=== PATIENT | female | born 1980 | race Caucasian/White ===

== ENCOUNTER 2021-10-14 23:48 | Emergency (ER) | payer SELFPAY ==
--- NOTE | ~2021-10-14 | CT_ITS ---
EXAMINATION: CT ABDOMEN AND PELVIS WITHOUT CONTRAST CLINICAL INFORMATION: Abdominal pain COMPARISON: 10/03/2021 TECHNIQUE: Multidetector volumetric imaging was performed from the superior aspect of the liver through the pubic symphysis. Sagittal and coronal reformatted images were obtained on the technologist's workstation. This CT examination was performed using dose optimization techniques as appropriate, variously including the following: *Automated exposure control *Adjustment of mA and/or kV according to patient size (this includes techniques or standardized protocols for targeted exams where dose is matched to indication/reason for exam; i.e. extremities or head) *Use of iterative reconstruction technique DLP: 637 mGy-cm FINDINGS: LUNG BASES: The visualized lung bases are unremarkable. LIVER, GALLBLADDER, AND BILIARY TREE: There is diffuse hepatic hypoattenuation consistent with steatosis. No intrahepatic biliary ductal dilatation. Redemonstrated subtle lesion in the posterior right hepatic lobe, without appreciable change from prior and not adequately assessed on this exam. Patient is status post cholecystectomy. PANCREAS: Unremarkable. SPLEEN: Unremarkable. ADRENAL GLANDS: Unremarkable. KIDNEYS AND URETERS: There is redemonstrated asymmetric fullness of the right renal pelvis with some surrounding stranding, without appreciable change from 10/03/2021. No obstructing calculus is seen. No left hydronephrosis. A few scattered bilateral renal calculi are present measuring up to 4 mm in the left lower pole. BLADDER: Unremarkable. GASTROINTESTINAL TRACT: No evidence of bowel obstruction or significant wall thickening. The appendix is unremarkable. No free fluid or free air is seen. ABDOMINAL WALL: No significant hernia is appreciated. LYMPH NODES: Normal. VASCULAR: Unremarkable. PELVIC VISCERA: Unremarkable. OSSEOUS STRUCTURES: There is degenerative change in the spine at L4-L5. CT/CT abdomen pelvis wo con IMPRESSION: 1. Redemonstrated fullness of the right renal pelvis with mild surrounding stranding, similar to 10/03/2021. No obstructing calculus identified. 2. Hepatic steatosis.
[2021-10-15 00:01] VITALS: BP 148/99; PULSE 100; RESP 18; TEMP 36.9; O2SAT 98; BMI 33.7
[2021-10-15 00:38] LABS: MANUAL DIFF FLAG NO
[2021-10-15 00:39] LABS: Appearance Urine HAZY; Basophils Percent Auto 0.5 % (0-2); Color Urine YELLOW; Eosinophils Absolute Auto 0.1 X10*3/uL (0.0-0.4); Eosinophils Percent Auto 1.1 % (0-4); Glucose Urine UA NEG (NEG); Hematocrit 41.2 % (37.0-47.0); Imm Gran Abs Auto 0.03 X10*3/uL (0.00-0.03); Imm Gran Pct Auto 0.3 % (0.0-0.4); Leukocyte Esterase Urine 2+ (NEG); Lymphocytes Absolute Auto 2.1 X10*3/uL (1.2-4.9); Lymphocytes Percent Auto 23.4 % (20-40); Mean Corpuscular Hemoglobin 30.2 pg (27.0-33.0); Mean Corpuscular Volume 88.8 fL (80.0-98.0); Mean Platelet Volume 9.6 fL (9.4-12.3); Monocytes Absolute Auto 0.4 X10*3/uL (0.1-1.2); Neutrophils Absolute Auto 6.2 x10*3/uL (2.0-8.3); Neutrophils Percent Auto 69.7 % (45-73); Nitrite Urine NEG (NEG); Platelet Count 391 X10*3/uL (160-400); Red Blood Count 4.64 X10*6/uL (4.20-5.50); Red Cell Distribution Width 12.4 % (11.0-16.0); UACC Culture Trigger YES; Urine Blood 1+ (NEG); Urine Ketones NEG (NEG); Urine Protein NEG (NEG-TRACE); White Blood Count 8.8 X10*3/uL (4.8-10.8)
[2021-10-15 00:41] LABS: UPreg QC Valid YES; Urine Pregnancy NEGATIVE (NEGATIVE)
[2021-10-15 00:49] LABS: Bacteria Urine 2+ /LPF; Mucus Urine 1+ /LPF; Squamous Epithelial Cell Urine 3+ /LPF; UACC CULT YES
[2021-10-15 00:59] VITALS: BP 144/85; PULSE 99; RESP 16; TEMP 36.9; O2SAT 97
[2021-10-15 01:02] LABS: Alanine Aminotransferase 92 U/L (0-31); Albumin Level 4.5 g/dL (3.5-5.0); Alkaline Phosphatase 103 U/L (39-117); Anion Gap 14 (12-20); Aspartate Amino Transferase 58 U/L (5-31); Bilirubin Total 0.4 mg/dL (0.0-1.0); Blood Urea Nitrogen 12 mg/dL (9-16); Calcium 10.5 mg/dL (8.4-10.2); Carbon Dioxide 25 mmol/L (22-29); Chloride 108 mmol/L (96-108); Creatinine Clr Calc Pharmacy 80.8; Estimated Glomerular Filt Rate 55; Glucose Random 92 mg/dL (60-115); Potassium 3.6 mmol/L (3.3-5.1); Sodium 143 mmol/L (135-145)
--- NOTE | 2021-10-15 01:08 | ED.FEMALEGU ---
HPI - Female Genitourinary General Chief complaint: Urogenital-Female <Kimmy Brock MD - Last Filed: 10/15/21 01:55> Stated complaint: kidney stones? severe pain R side <Kimmy Brock MD - Last Filed: 10/15/21 01:55> Time Seen by Provider: 10/15/21 01:00 <Kimmy Brock MD - Last Filed: 10/15/21 01:55> History of Present Illness HPI Narrative: Patient is a 41-year-old female presents today with having right-sided flank pain radiating to the right lower quadrant history of kidney stones in the past patient's pain feels the same. It is sharp in nature. It is associated with nausea. Patient from home. Had a ureteral stent removed in [place] approximately 2 weeks ago. Had previous stone on the left side as well. Patient denies any coughing congestion upper respiratory symptoms. Has an allergy to Motrin/Toradol. Patient claims that these medications give her a severe rash. <Kimmy Brock MD - Last Filed: 10/15/21 01:55> Related Data Home medications: Previous Rx's Medication Instructions Recorded levofloxacin 750 mg tablet 750 mg PO DAILY 7 Days #7 tab 10/15/21 <Kimmy Brock MD - Last Filed: 10/15/21 01:55> Allergies/Adverse reactions: Allergies Allergy/AdvReac Type Severity Reaction Status Date / Time ibuprofen [From Motrin] Allergy Rash Verified 10/15/21 00:00 ketorolac [From Toradol] Allergy Rash Verified 10/15/21 00:00 <Kimmy Brock MD - Last Filed: 10/15/21 01:55> Review of Systems Review of Systems: Positive right-sided flank pain <Kimmy Brock MD - Last Filed: 10/15/21 01:55> PMF Past Medical History Attestation statement: The following information was validated with the patient. <Kimmy Brock MD - Last Filed: 10/15/21 01:55> Social History Social History: Social History Alcohol intake: never Patient Tobacco Use Status: Never used Tobacco Use of substances other than those prescribed or required for medical reasons: No Advance Directives: No Patient : No <Kimmy Brock MD - Last Filed: 10/15/21 01:55> Physical Exam Vital Signs: Vital Signs: Last Vital Signs Temp 98.5 F 10/15/21 00:59 Pulse 99 10/15/21 00:59 Resp 15 10/15/21 01:42 BP 144/85 H 10/15/21 00:59 Pulse Ox 97 10/15/21 00:59 BMI result Body Mass Index 33.7 Appearance: Alert. Oriented X3. No acute distress. Eyes: Pupils equal, round and reactive to light. ENT: Pharynx normal. Neck: Normal inspection. Neck supple. No lymph nodes noted. No crepitus CVS: Normal heart rate and rhythm. Pulses normal. Normal S1 and S2 Respiratory: No respiratory distress. Breath sounds normal. No Wheezing. No rales Abdomen: Soft and nontender. No rigidity. No distention. good BS x4 Skin: Skin warm and dry. Normal skin color. Normal skin turgor. Extremities: No lower extremity edema. Neurovascular intact to all extremities. No Lacerations. No Rash Neuro: Oriented X 3. No motor deficit. No sensory deficit. Moving all extermities. No slurred speech <Kimmy Brock MD - Last Filed: 10/15/21 01:55> Vital Signs: Last Vital Signs Temp 98.5 F 10/15/21 00:59 Pulse 99 10/15/21 00:59 Resp 15 10/15/21 01:42 BP 144/85 H 10/15/21 00:59 Pulse Ox 97 10/15/21 00:59 BMI result Body Mass Index 33.7 <Dorita Roberto MD - Last Filed: 10/15/21 02:32> Course Reevaluation(s) Reevaluation #1: Patient was signed out to me for follow-up on possible renal colic. Her reviewed all findings and there is a report of renal fullness with some stranding and patient states that she completed a recent prescription of cephalexin, raising the possibility of incomplete resolution of underlying infection. I discussed this with the patient and she understands that she will be placed on an antibiotic that will cover infection of the kidney and that she should then follow up with her primary care provider. I will treat her presumptively for mild pyelonephritis but she is able to tolerate oral intake. In addition, patient is noted to have epigastric discomfort and does endorse recent alcohol consumption which may explain the elevation in lipase and may be a contributing factor to patient's symptoms. <Dorita Roberto MD - Last Filed: 10/15/21 02:32> Time: 02:27 <Dorita Roberto MD - Last Filed: 10/15/21 02:32> MDM - Female Genitourinary MDM Narrative Medical decision making narrative: Patient's white count is normal. Electrolytes showed a normal creatinine. Complaining of pain on the right flank area history of kidney stones in the past. CT scan of the abdomen still pending. Patient's urine showed mostly contamination. Currently in stable condition awaiting CT results. <Kimmy Brock MD - Last Filed: 10/15/21 01:55> Lab Data Result diagrams: : 10/15/21 00:23 10/15/21 00:23 <Kimmy Brock MD - Last Filed: 10/15/21 01:55> Labs: Lab Results 10/15/21 10/15/21 10/15/21 Range/Units 00:23 00:23 00:23 WBC 8.8 (4.8-10.8) X10*3/uL RBC 4.64 (4.20-5.50) X10*6/uL Hgb 14.0 (12.0-16.0) g/dl Hct 41.2 (37.0-47.0) % MCV 88.8 (80.0-98.0) fL MCH 30.2 (27.0-33.0) pg MCHC 34.0 (31.0-35.0) g/dl RDW 12.4 (11.0-16.0) % Plt Count 391 (160-400) X10*3/uL MPV 9.6 (9.4-12.3) fL Immature Gran % (Auto) 0.3 (0.0-0.4) % Neut % (Auto) 69.7 (45-73) % Lymph % (Auto) 23.4 (20-40) % [place] % (Auto) 5.0 (2-11) % Eos % (Auto) 1.1 (0-4) % Baso % (Auto) 0.5 (0-2) % Lymph # (Auto) 2.1 (1.2-4.9) X10*3/uL [place] # (Auto) 0.4 (0.1-1.2) X10*3/uL Eos # (Auto) 0.1 (0.0-0.4) X10*3/uL Baso # (Auto) 0.0 (0.0-0.2) X10*3/uL Abs Immat Gran (auto) 0.03 (0.00-0.03) X10*3/uL Absolute Neuts (auto) 6.2 (2.0-8.3) x10*3/uL Absolute Nucleated RBC 0.000 (0.0-0.012) X10*3/uL Nucleated RBC % (auto) 0.0 (0.0-0.2) /100WBC Sodium 143 (135-145) mmol/L Potassium 3.6 (3.3-5.1) mmol/L Chloride 108 (96-108) mmol/L Carbon Dioxide 25 (22-29) mmol/L Anion Gap 14 (12-20) BUN 12 (9-16) mg/dL Creatinine 1.10 (0.5-1.4) mg/dL Estim Creat Clear Calc 80.8 Estimated GFR 55 Random Glucose 92 (60-115) mg/dL Calcium 10.5 H (8.4-10.2) mg/dL Total Bilirubin 0.4 (0.0-1.0) mg/dL AST 58 H (5-31) U/L ALT 92 H (0-31) U/L Alkaline Phosphatase 103 (39-117) U/L Total Protein 7.0 (6.5-8.0) g/dL Albumin 4.5 (3.5-5.0) g/dL Lipase 129 H (8-78) U/L Urine Color YELLOW Urine Appearance HAZY Urine pH 6.0 (5.0-8.0) Ur Specific [place] 1.010 (1.005-1.025) Urine Protein NEG (NEG-TRACE) MG/DL Urine Glucose (UA) NEG (NEG) MG/DL Urine Ketones NEG (NEG) MG/DL Urine Blood 1+ H (NEG) Urine Nitrite NEG (NEG) Ur Leukocyte Esterase 2+ H (NEG) Urine RBC 1-4 (0) /HPF Urine WBC 15-29 H (0-4) /HPF Ur Squamous Epith Cells 3+ /LPF Urine Bacteria 2+ /LPF Urine Mucus 1+ /LPF Urine Test (NEGATIVE) 10/15/21 Range/Units 00:23 WBC (4.8-10.8) X10*3/uL RBC (4.20-5.50) X10*6/uL Hgb (12.0-16.0) g/dl Hct (37.0-47.0) % MCV (80.0-98.0) fL MCH (27.0-33.0) pg MCHC (31.0-35.0) g/dl RDW (11.0-16.0) % Plt Count (160-400) X10*3/uL MPV (9.4-12.3) fL Immature Gran % (Auto) (0.0-0.4) % Neut % (Auto) (45-73) % Lymph % (Auto) (20-40) % [place] % (Auto) (2-11) % Eos % (Auto) (0-4) % Baso % (Auto) (0-2) % Lymph # (Auto) (1.2-4.9) X10*3/uL [place] # (Auto) (0.1-1.2) X10*3/uL Eos # (Auto) (0.0-0.4) X10*3/uL Baso # (Auto) (0.0-0.2) X10*3/uL Abs Immat Gran (auto) (0.00-0.03) X10*3/uL Absolute Neuts (auto) (2.0-8.3) x10*3/uL Absolute Nucleated RBC (0.0-0.012) X10*3/uL Nucleated RBC % (auto) (0.0-0.2) /100WBC Sodium (135-145) mmol/L Potassium (3.3-5.1) mmol/L Chloride (96-108) mmol/L Carbon Dioxide (22-29) mmol/L Anion Gap (12-20) BUN (9-16) mg/dL Creatinine (0.5-1.4) mg/dL Estim Creat Clear Calc Estimated GFR Random Glucose (60-115) mg/dL Calcium (8.4-10.2) mg/dL Total Bilirubin (0.0-1.0) mg/dL AST (5-31) U/L ALT (0-31) U/L Alkaline Phosphatase (39-117) U/L Total Protein (6.5-8.0) g/dL Albumin (3.5-5.0) g/dL Lipase (8-78) U/L Urine Color Urine Appearance Urine pH (5.0-8.0) Ur Specific [place] (1.005-1.025) Urine Protein (NEG-TRACE) MG/DL Urine Glucose (UA) (NEG) MG/DL Urine Ketones (NEG) MG/DL Urine Blood (NEG) Urine Nitrite (NEG) Ur Leukocyte Esterase (NEG) Urine RBC (0) /HPF Urine WBC (0-4) /HPF Ur Squamous Epith Cells /LPF Urine Bacteria /LPF Urine Mucus /LPF Urine Test NEGATIVE (NEGATIVE) <Kimmy Brock MD - Last Filed: 10/15/21 01:55> Lab Results 10/15/21 10/15/21 10/15/21 Range/Units 00:23 00:23 00:23 WBC 8.8 (4.8-10.8) X10*3/uL RBC 4.64 (4.20-5.50) X10*6/uL Hgb 14.0 (12.0-16.0) g/dl Hct 41.2 (37.0-47.0) % MCV 88.8 (80.0-98.0) fL MCH 30.2 (27.0-33.0) pg MCHC 34.0 (31.0-35.0) g/dl RDW 12.4 (11.0-16.0) % Plt Count 391 (160-400) X10*3/uL MPV 9.6 (9.4-12.3) fL Immature Gran % (Auto) 0.3 (0.0-0.4) % Neut % (Auto) 69.7 (45-73) % Lymph % (Auto) 23.4 (20-40) % [place] % (Auto) 5.0 (2-11) % Eos % (Auto) 1.1 (0-4) % Baso % (Auto) 0.5 (0-2) % Lymph # (Auto) 2.1 (1.2-4.9) X10*3/uL [place] # (Auto) 0.4 (0.1-1.2) X10*3/uL Eos # (Auto) 0.1 (0.0-0.4) X10*3/uL Baso # (Auto) 0.0 (0.0-0.2) X10*3/uL Abs Immat Gran (auto) 0.03 (0.00-0.03) X10*3/uL Absolute Neuts (auto) 6.2 (2.0-8.3) x10*3/uL Absolute Nucleated RBC 0.000 (0.0-0.012) X10*3/uL Nucleated RBC % (auto) 0.0 (0.0-0.2) /100WBC Sodium 143 (135-145) mmol/L Potassium 3.6 (3.3-5.1) mmol/L Chloride 108 (96-108) mmol/L Carbon Dioxide 25 (22-29) mmol/L Anion Gap 14 (12-20) BUN 12 (9-16) mg/dL Creatinine 1.10 (0.5-1.4) mg/dL Estim Creat Clear Calc 80.8 Estimated GFR 55 Random Glucose 92 (60-115) mg/dL Calcium 10.5 H (8.4-10.2) mg/dL Total Bilirubin 0.4 (0.0-1.0) mg/dL AST 58 H (5-31) U/L ALT 92 H (0-31) U/L Alkaline Phosphatase 103 (39-117) U/L Total Protein 7.0 (6.5-8.0) g/dL Albumin 4.5 (3.5-5.0) g/dL Lipase 129 H (8-78) U/L Urine Color YELLOW Urine Appearance HAZY Urine pH 6.0 (5.0-8.0) Ur Specific [place] 1.010 (1.005-1.025) Urine Protein NEG (NEG-TRACE) MG/DL Urine Glucose (UA) NEG (NEG) MG/DL Urine Ketones NEG (NEG) MG/DL Urine Blood 1+ H (NEG) Urine Nitrite NEG (NEG) Ur Leukocyte Esterase 2+ H (NEG) Urine RBC 1-4 (0) /HPF Urine WBC 15-29 H (0-4) /HPF Ur Squamous Epith Cells 3+ /LPF Urine Bacteria 2+ /LPF Urine Mucus 1+ /LPF Urine Test (NEGATIVE) 10/15/21 Range/Units 00:23 WBC (4.8-10.8) X10*3/uL RBC (4.20-5.50) X10*6/uL Hgb (12.0-16.0) g/dl Hct (37.0-47.0) % MCV (80.0-98.0) fL MCH (27.0-33.0) pg MCHC (31.0-35.0) g/dl RDW (11.0-16.0) % Plt Count (160-400) X10*3/uL MPV (9.4-12.3) fL Immature Gran % (Auto) (0.0-0.4) % Neut % (Auto) (45-73) % Lymph % (Auto) (20-40) % [place] % (Auto) (2-11) % Eos % (Auto) (0-4) % Baso % (Auto) (0-2) % Lymph # (Auto) (1.2-4.9) X10*3/uL [place] # (Auto) (0.1-1.2) X10*3/uL Eos # (Auto) (0.0-0.4) X10*3/uL Baso # (Auto) (0.0-0.2) X10*3/uL Abs Immat Gran (auto) (0.00-0.03) X10*3/uL Absolute Neuts (auto) (2.0-8.3) x10*3/uL Absolute Nucleated RBC (0.0-0.012) X10*3/uL Nucleated RBC % (auto) (0.0-0.2) /100WBC Sodium (135-145) mmol/L Potassium (3.3-5.1) mmol/L Chloride (96-108) mmol/L Carbon Dioxide (22-29) mmol/L Anion Gap (12-20) BUN (9-16) mg/dL Creatinine (0.5-1.4) mg/dL Estim Creat Clear Calc Estimated GFR Random Glucose (60-115) mg/dL Calcium (8.4-10.2) mg/dL Total Bilirubin (0.0-1.0) mg/dL AST (5-31) U/L ALT (0-31) U/L Alkaline Phosphatase (39-117) U/L Total Protein (6.5-8.0) g/dL Albumin (3.5-5.0) g/dL Lipase (8-78) U/L Urine Color Urine Appearance Urine pH (5.0-8.0) Ur Specific [place] (1.005-1.025) Urine Protein (NEG-TRACE) MG/DL Urine Glucose (UA) (NEG) MG/DL Urine Ketones (NEG) MG/DL Urine Blood (NEG) Urine Nitrite (NEG) Ur Leukocyte Esterase (NEG) Urine RBC (0) /HPF Urine WBC (0-4) /HPF Ur Squamous Epith Cells /LPF Urine Bacteria /LPF Urine Mucus /LPF Urine Test NEGATIVE (NEGATIVE) <Dorita Roberto MD - Last Filed: 10/15/21 02:32> Discharge Plan Discharge Clinical Impression: Pyelonephritis, Pancreatitis <Kimmy Brock MD - Last Filed: 10/15/21 01:55> Patient Disposition: Home, Self-Care <Kimmy Brock MD - Last Filed: 10/15/21 01:55> Instructions: Pancreatitis (ED), Kidney Infection (ED) <Kimmy Brock MD - Last Filed: 10/15/21 01:55> Additional Instructions: 1. Complete the entire course of antibiotics that you have been provided. 2. Follow-up with your primary care provider in the next 1-2 days for re-evaluation and further outpatient management Return to the ER for worsening symptoms. <Kimmy Brock MD - Last Filed: 10/15/21 01:55> Prescriptions: New levofloxacin 750 mg tablet 750 mg PO DAILY 7 Days Qty: 7 0RF <Kimmy Brock MD - Last Filed: 10/15/21 01:55>
[2021-10-15 01:18] LABS: Lipase 129 U/L (8-78)
[2021-10-15 01:42] VITALS: RESP 15
[2021-10-15] MEDS: HYDROmorphone HCl 0.5 MG/0.5 ML SYRINGE IVPUSH (01:42)
[2021-10-15] MEDS: traMADoL HCL 50 MG TABLET 25 MG PO (02:47)
[2021-10-15] MEDS: levoFLOXacin 750 MG TABLET PO (02:47)
== END 2021-10-15 02:57 | disposition home or self-care (01) ==
PROVIDERS: Emergency Provider Emergency Medicine Emergency Medical Services
DX: N12 Tubulo-interstitial nephritis, not specified as acute or chronic (principal); K85.90 Acute pancreatitis without necrosis or infection, unspecified; Z79.899 Other long term (current) drug therapy
CPT/HCPCS: 36415; 74176; 80053; 81001; 81025; 83690; 85025; 87086; 87147; 96374; 99284; J1170

== ENCOUNTER 2021-12-26 13:39 | Emergency (ER) | payer SELFPAY ==
[2021-12-26 14:31] VITALS: BP 141/86; PULSE 105; RESP 18; TEMP 37.1; O2SAT 97; BMI 34.4
[2021-12-26] MEDS: Ondansetron ODT 4 MG TAB.RAPDIS TRANSLINGU (14:35)
[2021-12-26 15:44] LABS: MANUAL DIFF FLAG NO
[2021-12-26 15:46] LABS: Basophils Absolute Auto 0.1 X10*3/uL (0.0-0.2); Basophils Percent Auto 0.6 % (0-2); Eosinophils Absolute Auto 0.1 X10*3/uL (0.0-0.4); Eosinophils Percent Auto 0.6 % (0-4); Hematocrit 39.5 % (37.0-47.0); Hemoglobin 13.5 g/dl (12.0-16.0); Imm Gran Abs Auto 0.07 X10*3/uL (0.00-0.03); Imm Gran Pct Auto 0.6 % (0.0-0.4); Lymphocytes Absolute Auto 1.9 X10*3/uL (1.2-4.9); Lymphocytes Percent Auto 17.3 % (20-40); Mean Corpuscular HGB Conc 34.2 g/dl (31.0-35.0); Mean Corpuscular Volume 90.6 fL (80.0-98.0); Mean Platelet Volume 10.1 fL (9.4-12.3); Monocytes Absolute Auto 0.4 X10*3/uL (0.1-1.2); Monocytes Percent Auto 3.7 % (2-11); Neutrophils Absolute Auto 8.4 x10*3/uL (2.0-8.3); Neutrophils Percent Auto 77.2 % (45-73); Platelet Count 346 X10*3/uL (160-400); Red Blood Count 4.36 X10*6/uL (4.20-5.50); Red Cell Distribution Width 13.3 % (11.0-16.0); White Blood Count 10.9 X10*3/uL (4.8-10.8)
[2021-12-26 16:05] LABS: Alanine Aminotransferase 30 U/L (0-31); Albumin Level 4.5 g/dL (3.5-5.0); Alkaline Phosphatase 85 U/L (39-117); Anion Gap 13 (12-20); Aspartate Amino Transferase 19 U/L (5-31); Bilirubin Total 0.3 mg/dL (0.0-1.0); Blood Urea Nitrogen 14 mg/dL (9-16); Calcium 9.3 mg/dL (8.4-10.2); Carbon Dioxide 23 mmol/L (22-29); Chloride 107 mmol/L (96-108); Creatinine Clr Calc Pharmacy 97.6; Estimated Glomerular Filt Rate > 60; Glucose Random 92 mg/dL (60-115); Lipase 31 U/L (8-78); Potassium 4.1 mmol/L (3.3-5.1); Sodium 139 mmol/L (135-145); Total Protein 7.2 g/dL (6.5-8.0)
== END 2021-12-26 18:34 | disposition left against medical advice (07) ==
PROVIDERS: Emergency Provider Emergency Medicine
DX: R10.31 Right lower quadrant pain (principal)
CPT/HCPCS: 36415; 80053; 83690; 85025; 99281; 99283

== ENCOUNTER 2022-03-23 04:25 | Emergency (ER) | payer SELFPAY ==
--- NOTE | ~2022-03-23 | US_ITS ---
EXAMINATION: US PELVIS CLINICAL INFORMATION: Right lower quadrant pain. COMPARISON: No prior pelvic ultrasound. CT scan from earlier the same day. TECHNIQUE: Ultrasound of the pelvis is performed using both transabdominal and transvaginal transducers along with Doppler. Transvaginal imaging is performed due to inadequate visualization transabdominally. FINDINGS: Uterus: The uterus is anteverted and measures 8.9 x 3.6 x 4.4 cm. The double wall endometrial thickness is 4 mm. The uterus is smooth in contour and has normal myometrial echogenicity. No visible fibroid. Adnexa: Both ovaries are visualized. There is normal color flow to the adnexa. There is no ovarian torsion. There is no pelvic ascites or fluid collection. Right ovary measures 3.0 x 2.2 x 1.9 cm. Normal flow on Doppler interrogation. Follicles. Left ovary measures 2.0 x 2.0 x 1.7 cm. Normal flow on Doppler interrogation. Follicles. US/US pelvic and transvaginal IMPRESSION: Normal transabdominal and transvaginal pelvic ultrasound examinations.
--- NOTE | ~2022-03-23 | US_ITS ---
EXAMINATION: US PELVIS CLINICAL INFORMATION: Right lower quadrant pain. COMPARISON: No prior pelvic ultrasound. CT scan from earlier the same day. TECHNIQUE: Ultrasound of the pelvis is performed using both transabdominal and transvaginal transducers along with Doppler. Transvaginal imaging is performed due to inadequate visualization transabdominally. FINDINGS: Uterus: The uterus is anteverted and measures 8.9 x 3.6 x 4.4 cm. The double wall endometrial thickness is 4 mm. The uterus is smooth in contour and has normal myometrial echogenicity. No visible fibroid. Adnexa: Both ovaries are visualized. There is normal color flow to the adnexa. There is no ovarian torsion. There is no pelvic ascites or fluid collection. Right ovary measures 3.0 x 2.2 x 1.9 cm. Normal flow on Doppler interrogation. Follicles. Left ovary measures 2.0 x 2.0 x 1.7 cm. Normal flow on Doppler interrogation. Follicles. US/US pelvic ovarian doppler IMPRESSION: Normal transabdominal and transvaginal pelvic ultrasound examinations.
--- NOTE | ~2022-03-23 | CT_ITS ---
EXAMINATION: CT ABDOMEN AND PELVIS WITH CONTRAST CLINICAL INFORMATION: Periumbilical/right lower quadrant pain COMPARISON: 03/22/2022 TECHNIQUE: Multidetector volumetric images were obtained from the superior aspect of the liver through the pubic symphysis following administration 85 mL of Omnipaque 350 intravenous contrast. Sagittal and coronal reformatted images were obtained on the technologist's workstation. Oral contrast: No This CT examination was performed using dose optimization techniques as appropriate, variously including the following: *Automated exposure control *Adjustment of mA and/or kV according to patient size (this includes techniques or standardized protocols for targeted exams where dose is matched to indication/reason for exam; i.e. extremities or head) *Use of iterative reconstruction technique DLP: 902 mGy-cm FINDINGS: LUNG BASES: Mild dependent atelectasis. LIVER, GALLBLADDER, AND BILIARY TREE: The liver demonstrates hypoattenuation suspicious for steatosis. Redemonstrated enhancing lesion in the posterior right hepatic lobe measuring up to approximately 2.8 cm. No intrahepatic biliary ductal dilatation. Status post cholecystectomy. PANCREAS: Unremarkable. SPLEEN: Unremarkable. ADRENAL GLANDS: Unremarkable. KIDNEYS AND URETERS: No hydronephrosis or obstructing calculus bilaterally. Few bilateral renal cysts are noted; questionable nodule noted along the right upper pole cyst on renal ultrasound 02/11/2022. Few bilateral renal calculi are again noted measuring up to 4 mm in the left lower pole. BLADDER: Mildly distended and grossly unremarkable. GASTROINTESTINAL TRACT: No evidence of bowel obstruction or significant wall thickening. The appendix is unremarkable. No free fluid or free air is seen. ABDOMINAL WALL: No significant hernia is appreciated. LYMPH NODES: Normal. VASCULAR: Unremarkable. PELVIC VISCERA: Unremarkable. OSSEOUS STRUCTURES: Degenerative disc disease noted at L4-L5. CT/CT abdomen pelvis w IV con IMPRESSION: 1. No acute findings identified in the abdomen/pelvis. Normal appendix. 2. Redemonstrated enhancing lesion in the posterior right hepatic lobe, which may represent a hemangioma. If not already performed, further workup with dynamic liver MRI is recommended. 3. Redemonstrated bilateral renal calculi without hydronephrosis. 4. Bilateral renal cysts, with possible associated nodule in the right upper lobe cyst on prior ultrasound from 02/11/2022. Follow-up ultrasound in 6 months would be helpful to assess stability.
[2022-03-23 04:35] VITALS: BP 144/84; PULSE 104; RESP 20; TEMP 36.7; O2SAT 98; BMI 36.1
[2022-03-23 04:51] LABS: Basophils Absolute Auto 0.1 X10*3/uL (0.0-0.2); Basophils Percent Auto 0.5 % (0-2); Eosinophils Absolute Auto 0.1 X10*3/uL (0.0-0.4); Eosinophils Percent Auto 1.1 % (0-4); Hemoglobin 13.8 g/dl (12.0-16.0); Imm Gran Abs Auto 0.07 X10*3/uL (0.00-0.03); Imm Gran Pct Auto 0.7 % (0.0-0.4); Lymphocytes Absolute Auto 1.9 X10*3/uL (1.2-4.9); Lymphocytes Percent Auto 19.9 % (20-40); MANUAL DIFF FLAG NO; Mean Corpuscular HGB Conc 33.7 g/dl (31.0-35.0); Mean Corpuscular Hemoglobin 30.5 pg (27.0-33.0); Mean Corpuscular Volume 90.7 fL (80.0-98.0); Mean Platelet Volume 9.8 fL (9.4-12.3); Monocytes Absolute Auto 0.3 X10*3/uL (0.1-1.2); Monocytes Percent Auto 2.8 % (2-11); Neutrophils Absolute Auto 7.2 x10*3/uL (2.0-8.3); Platelet Count 304 X10*3/uL (160-400); Red Blood Count 4.52 X10*6/uL (4.20-5.50); Red Cell Distribution Width 12.3 % (11.0-16.0); White Blood Count 9.6 X10*3/uL (4.8-10.8)
[2022-03-23 05:11] LABS: Alanine Aminotransferase 62 U/L (0-31); Albumin Level 4.5 g/dL (3.5-5.0); Alkaline Phosphatase 94 U/L (39-117); Anion Gap 18 (12-20); Aspartate Amino Transferase 50 U/L (5-31); Bilirubin Direct < 0.2 mg/dL (0.0-0.5); Bilirubin Total 0.3 mg/dL (0.0-1.0); Blood Urea Nitrogen 13 mg/dL (9-16); Calcium 9.5 mg/dL (8.4-10.2); Carbon Dioxide 21 mmol/L (22-29); Chloride 105 mmol/L (96-108); Estimated Glomerular Filt Rate > 60; Glucose Random 119 mg/dL (60-115); Lipase 26 U/L (8-78); Potassium 3.9 mmol/L (3.3-5.1); Sodium 140 mmol/L (135-145)
[2022-03-23 05:19] LABS: Appearance Urine Clear; Color Urine Yellow; Glucose Urine UA Negative (Negative); Leukocyte Esterase Urine Trace (Negative); Nitrite Urine Negative (Negative); PH 5.5 (5.0-9.0); Specific Gravity - Urine 1.015 (1.005-1.025); UMIC TRIGGER UACC YES; Urine Blood Small (1+) (Negative); Urine Ketones Negative (Negative); Urine Protein Negative (Neg-Trace)
--- NOTE | 2022-03-23 05:27 | ED.ABDPAIN ---
HPI - Abdominal Pain General Chief Complaint: Abdominal Pain Stated Complaint: pain lower right abd Time Seen by Provider: 03/23/22 05:03 Source: patient Mode of arrival: ambulatory Limitations: no limitations History of Present Illness HPI narrative: Patient comes to the emergency room complaining of periumbilical and right lower quadrant pain that started yesterday. Patient states that the pain has gradually gotten worse. Patient complaining of nausea, no vomiting or diarrhea. Patient states that she has had history of kidney stones and ovarian cysts in the past. Patient states the pain feels different. Related Data Previous Rx's Medication Instructions Recorded levofloxacin 750 mg tablet 750 mg PO DAILY 7 days #7 tabs 10/15/21 Allergies Allergy/AdvReac Type Severity Reaction Status Date / Time ibuprofen [From Motrin] Allergy Rash Verified 12/26/21 14:30 ketorolac [From Toradol] Allergy Rash Verified 12/26/21 14:30 gabapentin [From Neurontin] AdvReac Headache Verified 12/26/21 14:31 Review of Systems Review of Systems Constitutional : No Weight loss, No Fever, No Chills, No Night Sweats, No Fatigue, No Malaise ENT/Mouth : No Hearing loss, No Ear Pain, No Nasal Congestion, No Sinus Pain, No Hoarseness, No sore throat, No Rhinorrhea, No Swallowing Difficulty Eyes: No Eye Pain, No Swelling, No Redness, No Foreign Body, No Discharge, No Vision Changes Cardiovascular : No Chest Pain, No SOB, No Dyspnea on Exertion, No Orthopnea, No Edema, No Palpitations Respiratory : No Cough, No Sputum, No Wheezing, No Smoke Exposure, No Dyspnea Gastrointestinal : Complaining of Nausea, No Vomiting, No Diarrhea, No Constipation, complaining of periumbilical pain radiating towards the right lower quadrant Genitourinary : no irregular bleeding, No Dysuria, No Urinary Frequency, No Hematuria, No Urinary Incontinence, No Urgency, No Flank Pain, No Urinary Flow Changes, No Hesitancy Musculoskeletal : No joint pain, No Myalgias, No Joint Swelling Skin : No Skin Lesions, No rash Neuro : No Weakness, No Numbness, No Paresthesias, No Loss of Consciousness, No Dizziness, No Headache Psych : No Anxiety/Panic, No Depression, No SI/HI/AH/VH, No Social Issues, Heme/Lymph: No Bruising, No Bleeding,No Lymphadenopathy Endocrine : No Polyuria, No Polydipsia, No Temperature Intolerance [facility] Past Medical History Medical History (Updated 03/23/22 @ 06:48 by Kristen Lyon MD) FH: cholecystectomy Kidney stones Ovarian cyst Social History Social History Alcohol intake: current Alcohol intake frequency: former alcohol drinker Patient Tobacco Use Status: Never used Tobacco Smoked in Last 30 Days: No Use of substances other than those prescribed or required for medical reasons: No Advance Directives: No Advance Directives Information Provided: No Physical Exam ED Vital Signs: Vital Signs - 24 hr 03/23/22 04:35 03/23/22 05:31 03/23/22 06:17 Temperature 98.1 F 98.5 F Pulse Rate 104 H 75 Respiratory Rate 20 14 16 Blood Pressure 144/84 H 148/94 H Pulse Oximetry 98 96 Oxygen Delivery Method Room Air Room Air BMI result Body Mass Index 36.1 Const Other: Appearance: Alert. Oriented X3. Seems uncomfortable Eyes: Pupils equal, round and reactive to light. ENT: Pharynx normal. Neck: Normal inspection. Neck supple. No lymph nodes noted. No crepitus CVS: Normal heart rate and rhythm. Pulses normal. Normal S1 and S2 Respiratory: No respiratory distress. Breath sounds normal. No Wheezing. No rales Abdomen: Soft and nontender. Pain to palpation periumbilical and right lower quadrant, patient has rebound, no guarding Skin: Skin warm and dry. Normal skin color. Normal skin turgor. Extremities: No lower extremity edema. No Lacerations. No Rash Neuro: Oriented X 3. No motor deficit. No sensory deficit. Moving all extremities. No slurred speech. CN 2 through 12 grossly intact Psych: calm, cooperative, normal affect Course Course Course Narrative: Patient's white blood cell count within normal limits,, she does not show any significant abnormalities. CT scan of the abdomen pending. CT scan does not show any acute abnormalities. Patient still with pain despite 4 mg of morphine, more more from being given. Pelvic/transpelvic/Doppler ultrasound pending Sign-out given to Dr. Bradshaw [facility] - Abdominal Pain Lab Data Result diagrams: 03/23/22 04:44 03/23/22 04:44 Labs: Lab Results 03/23/22 03/23/22 03/23/22 Range/Units 04:44 04:44 05:09 WBC 9.6 (4.8-10.8) X10*3/uL RBC 4.52 (4.20-5.50) X10*6/uL Hgb 13.8 (12.0-16.0) g/dl Hct 41.0 (37.0-47.0) % MCV 90.7 (80.0-98.0) fL MCH 30.5 (27.0-33.0) pg MCHC 33.7 (31.0-35.0) g/dl RDW 12.3 (11.0-16.0) % Plt Count 304 (160-400) X10*3/uL MPV 9.8 (9.4-12.3) fL Immature Gran % (Auto) 0.7 H (0.0-0.4) % Neut % (Auto) 75.0 H (45-73) % Lymph % (Auto) 19.9 L (20-40) % [place] % (Auto) 2.8 (2-11) % Eos % (Auto) 1.1 (0-4) % Baso % (Auto) 0.5 (0-2) % Lymph # (Auto) 1.9 (1.2-4.9) X10*3/uL [place] # (Auto) 0.3 (0.1-1.2) X10*3/uL Eos # (Auto) 0.1 (0.0-0.4) X10*3/uL Baso # (Auto) 0.1 (0.0-0.2) X10*3/uL Abs Immat Gran (auto) 0.07 H (0.00-0.03) X10*3/uL Absolute Neuts (auto) 7.2 (2.0-8.3) x10*3/uL Absolute Nucleated RBC 0.000 (0.0-0.012) X10*3/uL Nucleated RBC % (auto) 0.0 (0.0-0.2) /100WBC Sodium 140 (135-145) mmol/L Potassium 3.9 (3.3-5.1) mmol/L Chloride 105 (96-108) mmol/L Carbon Dioxide 21 L (22-29) mmol/L Anion Gap 18 (12-20) BUN 13 (9-16) mg/dL Creatinine 0.92 (0.5-1.4) mg/dL Estim Creat Clear Calc 100.0 Estimated GFR > 60 Random Glucose 119 H (60-115) mg/dL Calcium 9.5 (8.4-10.2) mg/dL Total Bilirubin 0.3 (0.0-1.0) mg/dL Direct Bilirubin < 0.2 (0.0-0.5) mg/dL AST 50 H D (5-31) U/L ALT 62 H (0-31) U/L Alkaline Phosphatase 94 (39-117) U/L Total Protein 7.0 (6.5-8.0) g/dL Albumin 4.5 (3.5-5.0) g/dL Lipase 26 (8-78) U/L Urine Color Yellow Urine Appearance Clear Urine pH 5.5 (5.0-9.0) Ur Specific [place] 1.015 (1.005-1.025) Urine Protein Negative (Neg-Trace) mg/dL Urine Glucose (UA) Negative (Negative) mg/dL Urine Ketones Negative (Negative) mg/dL Urine Blood Small (1+) H (Negative) Urine Nitrite Negative (Negative) Ur Leukocyte Esterase Trace H (Negative) Urine RBC 0-2 (0-2) /HPF Urine WBC 0-5 (0-5) /HPF Ur Squamous Epith Cells 6-10 (0-2) /HPF Urine Bacteria Trace (None Seen) Hyaline Casts 0-2 (0-2) /LPF Imaging Data CT scan - abdomen: Radiologist's impression: FINDINGS: LUNG BASES: Mild dependent atelectasis.? LIVER, GALLBLADDER, AND BILIARY TREE: The liver demonstrates hypoattenuation suspicious for steatosis. Redemonstrated enhancing lesion in the posterior right hepatic lobe measuring up to approximately 2.8 cm. No intrahepatic biliary ductal dilatation. Status post cholecystectomy.? PANCREAS: Unremarkable.? SPLEEN: Unremarkable.? ADRENAL GLANDS: Unremarkable.? KIDNEYS AND URETERS: No hydronephrosis or obstructing calculus bilaterally. Few bilateral renal cysts are noted; questionable nodule noted along the right upper pole cyst on renal ultrasound 02/11/2022. Few bilateral renal calculi are again noted measuring up to 4 mm in the left lower pole.? BLADDER: Mildly distended and grossly unremarkable.? GASTROINTESTINAL TRACT: No evidence of bowel obstruction or significant wall thickening. The appendix is unremarkable. No free fluid or free air is seen.? ABDOMINAL WALL: No significant hernia is appreciated.? LYMPH NODES: Normal. VASCULAR: Unremarkable. PELVIC VISCERA: Unremarkable.? OSSEOUS STRUCTURES: Degenerative disc disease noted at L4-L5.? CT/CT abdomen pelvis w IV con IMPRESSION: 1.? No acute findings identified in the abdomen/pelvis. Normal appendix. 2.? Redemonstrated enhancing lesion in the posterior right hepatic lobe, which may represent a hemangioma. If not already performed, further workup with dynamic liver MRI is recommended. 3.? Redemonstrated bilateral renal calculi without hydronephrosis. 4.? Bilateral renal cysts, with possible associated nodule in the right upper lobe cyst on prior ultrasound from 02/11/2022. Follow-up ultrasound in 6 months would be helpful to assess stability. Discharge Plan Discharge Clinical Impression: Abdominal pain Patient Disposition: Still a Patient Prescriptions: No Action levofloxacin 750 mg tablet 750 mg PO DAILY 7 Days Qty: 7 0RF
[2022-03-23 05:28] LABS: Bacteria Urine Trace (None Seen); Hyaline Casts Urine 0-2 /LPF (0-2); RBC Urine 0-2 /HPF (0-2); WBC Urine 0-5 /HPF (0-5)
[2022-03-23 05:31] VITALS: RESP 14
[2022-03-23] MEDS: Morphine Sulfate 4 MG/ML CARTRIDGE IVPUSH ×3 (05:31→09:47)
[2022-03-23] MEDS: ondansetron HCL 4 MG/2 ML VIAL IVPUSH (05:32)
[2022-03-23] MEDS: iohexoL 350 MG/ML 100 ML INFUS..BTL 85 ML IV (05:59)
[2022-03-23 06:17] VITALS: BP 148/94; PULSE 75; RESP 16; TEMP 36.9; O2SAT 96
[2022-03-23 06:52] VITALS: RESP 16
[2022-03-23 08:01] VITALS: BP 148/85; PULSE 75; RESP 18; TEMP 36.9; O2SAT 96
--- NOTE | 2022-03-23 11:13 | PC.NURSE ---
pt not found at the bedside, hospital attire on the chair. spoke with sebastian the primary rn and he did not d/c the pt home also spoke to brnet rn the float also did not d/c home. pt did have an iv on the left arm. this rn called the pt to come back to the hospital or call back to see if someone else took the iv out, pt did not pick up man. left a message
== END 2022-03-23 11:13 | disposition home or self-care (01) ==
PROVIDERS: Emergency Medicine; Emergency Provider Emergency Medicine
DX: R10.31 Right lower quadrant pain (principal); R10.33 Periumbilical pain
CPT/HCPCS: 36415; 74177; 76830; 76856; 80048; 80076; 81001; 83690; 85025; 93975; 96361; 96374; 96375; 96376; 99284; J2270; J2405; Q9967

== ENCOUNTER 2022-06-19 03:48 | Emergency (ER) | payer SELFPAY ==
--- NOTE | ~2022-06-19 | CT_ITS ---
EXAMINATION: CT ABDOMEN AND PELVIS WITHOUT CONTRAST CLINICAL INFORMATION: Right flank pain with history of stone COMPARISON: 06/15/2022 TECHNIQUE: Multidetector volumetric imaging was performed from the superior aspect of the liver through the pubic symphysis. Sagittal and coronal reformatted images were obtained on the technologist's workstation. This CT examination was performed using dose optimization techniques as appropriate, variously including the following: *Automated exposure control *Adjustment of mA and/or kV according to patient size (this includes techniques or standardized protocols for targeted exams where dose is matched to indication/reason for exam; i.e. extremities or head) *Use of iterative reconstruction technique DLP: 747 mGy-cm FINDINGS: LUNG BASES: Mild dependent bibasilar atelectasis. LIVER, GALLBLADDER, AND BILIARY TREE: The liver demonstrates hypoattenuation suspicious for steatosis. Redemonstrated mildly hypodense right hepatic lobe lesion, without appreciable interval change. No biliary ductal dilatation is present. Patient is status post cholecystectomy. PANCREAS: Unremarkable. SPLEEN: Unremarkable. ADRENAL GLANDS: Unremarkable. KIDNEYS AND URETERS: No hydronephrosis or obstructing calculus bilaterally. Several bilateral renal calculi are noted measuring up to 4 mm in the left lower pole. BLADDER: Unremarkable. GASTROINTESTINAL TRACT: Assessment for wall thickening in some segments of the colon is limited due to luminal collapse, though no significant pericolonic stranding is seen to strongly suggest a colitis. The small and large bowel are otherwise unremarkable without evidence of obstruction or pericolonic inflammatory change. The appendix is unremarkable. No free fluid or free air is seen. ABDOMINAL WALL: No significant hernia is appreciated. LYMPH NODES: Normal. VASCULAR: Unremarkable. PELVIC VISCERA: Unremarkable. OSSEOUS STRUCTURES: Degenerative changes are noted in the lower lumbar spine. CT/CT abdomen pelvis wo IV con IMPRESSION: 1. No acute findings identified in the abdomen/pelvis. No hydronephrosis or obstructing calculus. Bilateral renal calculi. 2. Redemonstrated right hepatic lobe lesion, which may be further assessed with dynamic liver MRI if not already performed.
[2022-06-19 03:50] VITALS: BP 150/99; PULSE 96; RESP 16; TEMP 36.6; O2SAT 98; BMI 34.4
--- NOTE | 2022-06-19 04:14 | ED_ITS ---
HPI - Abdominal Pain General Chief Complaint: Back Pain/Injury Stated Complaint: Flank pain/Blood in urine Time Seen by Provider: 06/19/22 04:13 Source: patient Mode of arrival: ambulatory Limitations: no limitations History of Present Illness HPI narrative: Patient history of kidney stone still for lithotripsy comes here for pain in the right flank area started yesterday with nausea and vomiting no fever no chills also notice dysuria for last few days and blood today no fever or chills Related Data Previous Rx's Medication Instructions Recorded levofloxacin 750 mg tablet 750 mg PO DAILY 7 days #7 tabs 10/15/21 cefuroxime axetil 250 mg tablet 250 mg PO BID 7 days #14 tabs 06/19/22 phenazopyridine 200 mg tablet 200 mg PO TID 2 days #6 tabs 06/19/22 (Pyridium) tramadol 50 mg tablet 50 mg PO Q6H PRN pain #20 tabs 06/19/22 Allergies Allergy/AdvReac Type Severity Reaction Status Date / Time ibuprofen [From Motrin] Allergy Rash Verified 06/19/22 03:53 ketorolac [From Toradol] Allergy Rash Verified 06/19/22 03:53 gabapentin [From Neurontin] AdvReac Headache Verified 06/19/22 03:53 Review of Systems Review of Systems Yes all other systems are reviewed and are negative PMFSH Past Medical History Medical History FH: cholecystectomy Kidney stones Ovarian cyst Social History Social History Alcohol intake: current Alcohol intake frequency: former alcohol drinker Patient Tobacco Use Status: Never used Tobacco Advance Directives: No Advance Directives Information Provided: No Physical Exam ED Vital Signs: Vital Signs - 24 hr 06/19/22 03:50 06/19/22 04:55 06/19/22 04:55 Temperature 97.8 F 98.7 F Pulse Rate 96 90 Respiratory Rate 16 20 20 Blood Pressure 150/99 H 133/85 Pulse Oximetry 98 97 Oxygen Delivery Method Room Air Room Air 06/19/22 05:59 Temperature 98.5 F Pulse Rate 87 Respiratory Rate 16 Blood Pressure 123/68 Pulse Oximetry 98 Oxygen Delivery Method Room Air BMI result Body Mass Index 34.4 Appearance: Alert. Oriented X3. No acute distress. ENT: Pharynx normal. Oral Mucosa moist Neck: Normal inspection. Neck supple. CVS: Normal heart rate and rhythm. Pulses normal. Respiratory: No respiratory distress. Equal air entry bilateral, no wheezing/rales/rhonchi Abdomen: Soft and nontender. Bowel sounds are present, no mass palpable, r CVA tenderness+ Skin: Skin warm and dry. Normal skin color. Normal skin turgor. Extremities: No lower extremity edema. No calf tenderness Neuro: Oriented X 3. No motor deficit. Medical Decision Making Medical Decision Making [facility] Narrative: Patient with right renal colic history of stone workup showed UTI CT scan negative for any obstructive stone discharge patient home on Ceftin and Pyridium Lab Data [facility] Lab Attestation statement: I reviewed the patient's lab results. 06/19/22 04:36 06/19/22 04:36 Labs: Lab Results 06/19/22 06/19/22 06/19/22 Range/Units 04:36 04:36 06:06 WBC 11.2 H (4.8-10.8) X10*3/uL RBC 4.77 (4.20-5.50) X10*6/uL Hgb 14.7 (12.0-16.0) g/dl Hct 43.2 (37.0-47.0) % MCV 90.6 (80.0-98.0) fL MCH 30.8 (27.0-33.0) pg MCHC 34.0 (31.0-35.0) g/dl RDW 12.5 (11.0-16.0) % Plt Count 352 (160-400) X10*3/uL MPV 10.1 (9.4-12.3) fL Immature Gran % (Auto) 1.0 H (0.0-0.4) % Neut % (Auto) 76.6 H (45-73) % Lymph % (Auto) 17.1 L (20-40) % [place] % (Auto) 3.9 (2-11) % Eos % (Auto) 0.8 (0-4) % Baso % (Auto) 0.6 (0-2) % Lymph # (Auto) 1.9 (1.2-4.9) X10*3/uL [place] # (Auto) 0.4 (0.1-1.2) X10*3/uL Eos # (Auto) 0.1 (0.0-0.4) X10*3/uL Baso # (Auto) 0.1 (0.0-0.2) X10*3/uL Abs Immat Gran (auto) 0.11 H (0.00-0.03) X10*3/uL Absolute Neuts (auto) 8.5 H (2.0-8.3) x10*3/uL Absolute Nucleated RBC 0.000 (0.0-0.012) X10*3/uL Nucleated RBC % (auto) 0.0 (0.0-0.2) /100WBC Sodium 138 (135-145) mmol/L Potassium 4.3 (3.3-5.1) mmol/L Chloride 111 H (96-108) mmol/L Carbon Dioxide 15 L (22-29) mmol/L Anion Gap 16 (12-20) BUN 25 H (9-16) mg/dL Creatinine 1.06 (0.5-1.4) mg/dL Estim Creat Clear Calc 83.9 Estimated GFR 57 Random Glucose 97 (60-115) mg/dL Calcium 9.4 (8.4-10.2) mg/dL Total Bilirubin 0.4 (0.0-1.0) mg/dL Direct Bilirubin < 0.2 (0.0-0.5) mg/dL AST 21 (5-31) U/L ALT 30 (0-31) U/L Alkaline Phosphatase 96 (39-117) U/L Total Protein 7.2 (6.5-8.0) g/dL Albumin 4.6 (3.5-5.0) g/dL Lipase 45 (8-78) U/L Urine Color Yellow Urine Appearance Clear Urine pH 5.5 (5.0-9.0) Ur Specific [place] 1.025 (1.005-1.025) Urine Protein 30 (1+) H (Neg-Trace) mg/dL Urine Glucose (UA) Negative (Negative) mg/dL Urine Ketones Trace (Negative) mg/dL Urine Blood Small (1+) H (Negative) Urine Nitrite Negative (Negative) Ur Leukocyte Esterase Small (1+) H (Negative) Urine RBC 3-5 H (0-2) /HPF Urine WBC 11-20 H (0-5) /HPF Ur Squamous Epith Cells 6-10 (0-2) /HPF Urine Bacteria Trace (None Seen) Hyaline Casts 0-2 (0-2) /LPF Medications Administered Discontinued Medications Generic Name Dose Route Start Last Admin Trade Name Freq PRN Reason Stop Dose Admin Sodium Chloride 1,000 mls @ 999 mls/hr 06/19/22 04:17 06/19/22 05:15 Ns IV 06/19/22 05:17 Infused .Q1H1M ONE Infusion Morphine Sulfate 4 mg 06/19/22 04:18 06/19/22 04:55 Morphine Sulfate 4 Mg/Ml Cartridge IVPUSH 06/19/22 04:19 4 mg ONCE ONE Administration Protocol Ondansetron HCl 4 mg 06/19/22 04:18 06/19/22 04:54 Ondansetron Hcl 4 Mg/2 Ml Vial IVPUSH 06/19/22 04:19 4 mg ONCE ONE Administration Discharge Plan Discharge Clinical Impression: UTI (urinary tract infection), Renal colic Patient Disposition: Home, Self-Care Instructions: Urinary Tract Infection in Women (ED), Renal Colic (ED) Additional Instructions: Drink plenty of fluids Antibiotic as prescribed Pain medication as prescribed Follow-up with your PCP if not better Prescriptions: New cefuroxime axetil 250 mg tablet 250 mg PO BID 7 Days Qty: 14 0RF phenazopyridine [Pyridium] 200 mg tablet 200 mg PO TID 2 Days Qty: 6 0RF tramadol 50 mg tablet 50 mg PO Q6H PRN (Reason: pain) Qty: 20 0RF No Action levofloxacin 750 mg tablet 750 mg PO DAILY 7 Days Qty: 7 0RF
[2022-06-19 04:39] LABS: MANUAL DIFF FLAG NO
[2022-06-19 04:40] LABS: Basophils Absolute Auto 0.1 X10*3/uL (0.0-0.2); Basophils Percent Auto 0.6 % (0-2); Eosinophils Absolute Auto 0.1 X10*3/uL (0.0-0.4); Eosinophils Percent Auto 0.8 % (0-4); Hematocrit 43.2 % (37.0-47.0); Hemoglobin 14.7 g/dl (12.0-16.0); Imm Gran Abs Auto 0.11 X10*3/uL (0.00-0.03); Lymphocytes Absolute Auto 1.9 X10*3/uL (1.2-4.9); Lymphocytes Percent Auto 17.1 % (20-40); Mean Corpuscular Hemoglobin 30.8 pg (27.0-33.0); Mean Corpuscular Volume 90.6 fL (80.0-98.0); Mean Platelet Volume 10.1 fL (9.4-12.3); Monocytes Absolute Auto 0.4 X10*3/uL (0.1-1.2); Monocytes Percent Auto 3.9 % (2-11); Neutrophils Absolute Auto 8.5 x10*3/uL (2.0-8.3); Neutrophils Percent Auto 76.6 % (45-73); Platelet Count 352 X10*3/uL (160-400); Red Blood Count 4.77 X10*6/uL (4.20-5.50); Red Cell Distribution Width 12.5 % (11.0-16.0); White Blood Count 11.2 X10*3/uL (4.8-10.8)
[2022-06-19] MEDS: ondansetron HCL 4 MG/2 ML VIAL IVPUSH (04:54)
[2022-06-19] MEDS: 0.9 % Sodium Chloride 1,000 ML 999 ML IV (04:54)
[2022-06-19 04:55] VITALS: BP 133/85; PULSE 90; RESP 20; TEMP 37.1; O2SAT 97
[2022-06-19] MEDS: Morphine Sulfate 4 MG/ML CARTRIDGE IVPUSH (04:55)
[2022-06-19 05:01] LABS: Alanine Aminotransferase 30 U/L (0-31); Albumin Level 4.6 g/dL (3.5-5.0); Alkaline Phosphatase 96 U/L (39-117); Anion Gap 16 (12-20); Aspartate Amino Transferase 21 U/L (5-31); Bilirubin Direct < 0.2 mg/dL (0.0-0.5); Bilirubin Total 0.4 mg/dL (0.0-1.0); Blood Urea Nitrogen 25 mg/dL (9-16); Calcium 9.4 mg/dL (8.4-10.2); Carbon Dioxide 15 mmol/L (22-29); Chloride 111 mmol/L (96-108); Creatinine Clr Calc Pharmacy 83.9; Estimated Glomerular Filt Rate 57; Glucose Random 97 mg/dL (60-115); Lipase 45 U/L (8-78); Potassium 4.3 mmol/L (3.3-5.1); Sodium 138 mmol/L (135-145); Total Protein 7.2 g/dL (6.5-8.0)
[2022-06-19 05:59] VITALS: BP 123/68; PULSE 87; RESP 16; TEMP 36.9; O2SAT 98
[2022-06-19 06:13] LABS: Appearance Urine Clear; Color Urine Yellow; Glucose Urine UA Negative (Negative); Leukocyte Esterase Urine Small (1+) (Negative); Nitrite Urine Negative (Negative); PH 5.5 (5.0-9.0); Specific Gravity - Urine 1.025 (1.005-1.025); UMIC TRIGGER UACC YES; Urine Blood Small (1+) (Negative); Urine Ketones Trace mg/dL (Negative); Urine Protein 30 (1+) mg/dL (Neg-Trace)
[2022-06-19 06:24] LABS: Bacteria Urine Trace (None Seen); Hyaline Casts Urine 0-2 /LPF (0-2); UACC Culture Trigger YES
[2022-06-19] MEDS: Phenazopyridine HCL 200 MG TABLET PO (06:51)
[2022-06-19] MEDS: cefTRIAXone sodium 1 GM in 0.9 % Sodium Chloride 50 ML IV (06:52)
--- NOTE | 2022-06-19 06:57 | PC.NURSE ---
assumed care of patient, pt getting Iv abx and then d/c home. VSS
== END 2022-06-19 07:10 | disposition home or self-care (01) ==
PROVIDERS: Emergency Provider Internal Medicine
DX: N39.0 Urinary tract infection, site not specified (principal); N23 Unspecified renal colic; M54.50 Low back pain, unspecified; Z79.899 Other long term (current) drug therapy
CPT/HCPCS: 36415; 74176; 80048; 80076; 81001; 83690; 85025; 87086; 96374; 96375; 99284; J0696; J2270; J2405

== ENCOUNTER 2022-08-23 04:08 | Emergency (ER) | payer MEDICAID, SELFPAY ==
--- NOTE | ~2022-08-23 | CT_ITS ---
EXAMINATION: CT ABDOMEN AND PELVIS WITHOUT CONTRAST CLINICAL INFORMATION: Hematuria. Right-sided flank pain. COMPARISON: CT brain 06/19/2022. TECHNIQUE: Multidetector volumetric imaging was performed from the superior aspect of the liver through the pubic symphysis. Sagittal and coronal reformatted images were obtained on the technologist's workstation. This CT examination was performed using dose optimization techniques as appropriate, variously including the following: *Automated exposure control *Adjustment of mA and/or kV according to patient size (this includes techniques or standardized protocols for targeted exams where dose is matched to indication/reason for exam; i.e. extremities or head) *Use of iterative reconstruction technique DLP: 809 mGy-cm FINDINGS: LUNG BASES: There is dependent bibasilar atelectasis. The heart size is normal.. LIVER, GALLBLADDER, AND BILIARY TREE: The liver is normal in size, shape, and diffusely hypoattenuated. There is focal fatty sparing right hepatic lobe anterior segment. No biliary ductal dilatation is present. The gallbladder has been surgically removed. PANCREAS: Unremarkable. SPLEEN: Unremarkable. ADRENAL GLANDS: Unremarkable. KIDNEYS AND URETERS: The kidneys are normal in size, shape, and attenuation. There are multiple bilateral radiopaque renal calculi. The largest calculi measures 5 mm in lower pole and 3 mm in the upper midpole right kidney. There is mild prominence of right kidney pelvis and proximal ureter but no radiopaque calculi seen along the course of the ureter. The left ureter is unremarkable. There are several phleboliths in the right pelvis. BLADDER: Unremarkable. GASTROINTESTINAL TRACT: There is scattered stool and gas seen throughout the colon without distention. The small bowel loops are normal caliber. Appendix is normal caliber. The stomach is nondistended. ABDOMINAL WALL: There is a small lumbar canal hernia containing fat. LYMPH NODES: Normal. VASCULAR: Unremarkable. PELVIC VISCERA: There is no free fluid or free air. OSSEOUS STRUCTURES: No aggressive lytic or sclerotic process seen. There is degenerative disc changes with vacuum disc phenomena L4-L5 disc with mild ventral and posterior spondylosis. CT/CT abdomen pelvis wo IV con IMPRESSION: 1. Bilateral nonobstructive radiopaque renal calculi. There is mild prominence of right kidney pelvis and proximal ureter but no radiopaque calculi seen along the course of the ureter. 2. Mild constipation. Normal appendix. 3. Hepatic steatosis with focal fatty sparing right hepatic lobe Fleischner guidelines were followed.
[2022-08-23 04:14] VITALS: BP 141/91; PULSE 124; RESP 18; TEMP 36.6; O2SAT 97; BMI 35.2
[2022-08-23 04:30] LABS: MANUAL DIFF FLAG NO
[2022-08-23 04:31] LABS: Basophils Absolute Auto 0.1 X10*3/uL (0.0-0.2); Basophils Percent Auto 0.4 % (0-2); Eosinophils Absolute Auto 0.2 X10*3/uL (0.0-0.4); Eosinophils Percent Auto 1.4 % (0-4); Hematocrit 41.7 % (37.0-47.0); Hemoglobin 14.2 g/dl (12.0-16.0); Imm Gran Abs Auto 0.12 X10*3/uL (0.00-0.03); Imm Gran Pct Auto 0.9 % (0.0-0.4); Lymphocytes Absolute Auto 2.9 X10*3/uL (1.2-4.9); Lymphocytes Percent Auto 20.8 % (20-40); Mean Corpuscular HGB Conc 34.1 g/dl (31.0-35.0); Mean Corpuscular Hemoglobin 30.6 pg (27.0-33.0); Mean Corpuscular Volume 89.9 fL (80.0-98.0); Mean Platelet Volume 9.5 fL (9.4-12.3); Monocytes Absolute Auto 0.8 X10*3/uL (0.1-1.2); Monocytes Percent Auto 5.9 % (2-11); Neutrophils Absolute Auto 9.8 x10*3/uL (2.0-8.3); Neutrophils Percent Auto 70.6 % (45-73); Platelet Count 410 X10*3/uL (160-400); Red Blood Count 4.64 X10*6/uL (4.20-5.50); Red Cell Distribution Width 12.2 % (11.0-16.0); White Blood Count 13.8 X10*3/uL (4.8-10.8)
[2022-08-23 04:48] LABS: Alanine Aminotransferase 21 U/L (0-31); Albumin Level 4.5 g/dL (3.5-5.0); Alkaline Phosphatase 98 U/L (39-117); Anion Gap 18 (12-20); Aspartate Amino Transferase 21 U/L (5-31); Bilirubin Total 0.5 mg/dL (0.0-1.0); Blood Urea Nitrogen 19 mg/dL (9-16); Calcium 9.7 mg/dL (8.4-10.2); Carbon Dioxide 20 mmol/L (22-29); Chloride 108 mmol/L (96-108); Creatinine Clr Calc Pharmacy 79.6; Estimated Glomerular Filt Rate 53; Glucose Random 119 mg/dL (60-115); Potassium 4.2 mmol/L (3.3-5.1); Sodium 142 mmol/L (135-145); Total Protein 6.9 g/dL (6.5-8.0)
--- NOTE | 2022-08-23 05:17 | PC.NURSE ---
Pt presenting to ER with 9/10 abdominal pain in the left abdomen, radiating to the right flank. Pt had a stent put in recently and was taken out per urology. Pt has since had extreme pain on the left side and has had blood in her urine. Pt reports nausea and one episode of vomiting. Pain increases significantly when pt urinates. Pt is A&Ox4, GCS 15. skin is warm, pink, and dry. Pt is sitting up on the side of her bed at this time, waiting to be seen by ED provider.
[2022-08-23 05:46] VITALS: BP 144/84; PULSE 116; RESP 17; TEMP 36.4; O2SAT 97
[2022-08-23 07:16] VITALS: BP 123/86; PULSE 98; RESP 14; TEMP 36.4; O2SAT 98
[2022-08-23 07:55] VITALS: BP 127/86; PULSE 108; RESP 16; TEMP 36.6; O2SAT 97
--- NOTE | 2022-08-23 08:19 | ED.FEMALEGU ---
HPI - Female Genitourinary General Chief complaint: Urogenital-Female Stated complaint: Blood in urine Time Seen by Provider: 08/23/22 08:01 Source: patient and old records reviewed Mode of arrival: ambulatory Limitations: no limitations History of Present Illness HPI Narrative: 42 yo female with history of recurrent kidney stones requiring lithotripsy and stent, last 2 weeks ago who presents to the ER for evaluation of severe, 9/10 right sided falnk pain along with nausea, dysuria and hematuria for the last 2 days. She states she follows with [facility] in [place]. She had a removable stent that she took out at home last week. She states 2 days ago she developed kidney pain on the right side, squeezing in nature whenever she voids. She notice light hematuria and burning with urination as well. Symptoms got worse today and include nausea. No fevers. MD elicited complaint: dysuria, back pain and flank pain Pertinent past history: recurrent UTIs Onset (ago): day(s) (2) Location of symptoms: flank Severity: severe Female Urogenital Radiation: LRQ Severity scale (1-10): 9 Quality of pain: sharp Consistency: constant Vaginal discharge: none Vaginal bleeding: none Urinary symptoms: Dysuria, Hematuria, Difficulty Urinating and Flank Pain Exacerbating factors: urination Relieving factors: none Associated symptoms: abdominal pain, weakness, chills and nausea Sexual activity: No Patient : No Related Data Previous Rx's Medication Instructions Recorded levofloxacin 750 mg tablet 750 mg PO DAILY 7 days #7 tabs 10/15/21 cefuroxime axetil 250 mg tablet 250 mg PO BID 7 days #14 tabs 06/19/22 phenazopyridine 200 mg tablet 200 mg PO TID 2 days #6 tabs 06/19/22 (Pyridium) tramadol 50 mg tablet 50 mg PO Q6H PRN pain #20 tabs 06/19/22 levofloxacin 500 mg tablet 500 mg PO DAILY #7 tabs 08/23/22 Allergies Allergy/AdvReac Type Severity Reaction Status Date / Time ibuprofen [From Motrin] Allergy Rash Verified 08/23/22 04:13 ketorolac [From Toradol] Allergy Rash Verified 08/23/22 04:13 gabapentin [From Neurontin] AdvReac Headache Verified 08/23/22 04:13 Review of Systems Review of Systems: Yes all other systems are reviewed and are negative PMFSH Past Medical History Medical History FH: cholecystectomy Kidney stones Ovarian cyst Social History Social History Alcohol intake: current Alcohol intake frequency: holidays/special occasions only Patient Tobacco Use Status: Never used Tobacco Smoked in Last 30 Days: No Use of substances other than those prescribed or required for medical reasons: No Advance Directives: No Advance Directives Information Provided: Yes Patient : No Physical Exam Vital Signs: Vital Signs: Last Vital Signs Temp 97.9 F 08/23/22 11:01 Pulse 87 08/23/22 11:01 Resp 13 08/23/22 11:01 BP 121/73 08/23/22 11:01 Pulse Ox 97 08/23/22 11:01 O2 Del Method Room Air 08/23/22 11:01 BMI result Body Mass Index 35.2 Appearance: Alert. Oriented X3. Appears uncomfortable Head: normocephalic, atraumatic. Eyes: Pupils equal, round and reactive to light. ENT: Pharynx normal. No tonsillar swelling or exudate. Neck: Normal inspection. Neck supple. CVS: Normal heart rate and rhythm. Pulses normal. Respiratory: No respiratory distress. Breath sounds normal. Abdomen: Soft and nontender. +BS x4. +CVA tenderness on the right side. Skin: Skin warm and dry. Normal skin color. Normal skin turgor. No rashes. Extremities: No lower extremity edema. No joint swelling. Neuro/psych: Oriented X 3. No motor deficit. No sensory deficit. CN II-XII intact. Normal speech and cognition. Medications Administered Discontinued Medications Generic Name Dose Route Start Last Admin Trade Name Freq PRN Reason Stop Dose Admin Acetaminophen 975 mg 08/23/22 10:07 08/23/22 10:16 Acetaminophen 325 Mg Tablet PO 08/23/22 10:08 975 mg ONCE ONE Administration Hydromorphone HCl 1 mg 08/23/22 08:16 08/23/22 08:27 Hydromorphone Hcl 1 Mg/Ml Syringe IVPUSH 08/23/22 08:17 1 mg ONCE ONE Administration Protocol Sodium Chloride 1,000 mls @ 999 mls/hr 08/23/22 08:30 08/23/22 10:12 Ns IVCONT 08/23/22 09:30 Infused .Q1H1M GAEL Infusion Ondansetron HCl 4 mg 08/23/22 08:16 08/23/22 08:27 Ondansetron Hcl 4 Mg/2 Ml Vial IVPUSH 08/23/22 08:17 4 mg ONCE ONE Administration Medical Decision Making Medical Decision Making [facility] Narrative: 42 yo female with complex urologic history including recurrent kidney stones requiring multiple lithotripsies and stents in the past who presents to the ER for severe right flank pain, hematuria and dysuria x2 days. Recently had a self removable stent taken out at home. ++CVA tenderness on examination. States her pain is best controlled with dilaudid, which was given. Her UA appears contaminated but no obvious infection, only small amount of blood. Her CT scan is showing mild prominance of the right kidney pelvis but no ureteral stone seen, no gross hydronephrosis. Given her c/o dysuria and small amount of blood on the urine will empirically treat with levaquin. she has an appointment with her urologist next week. encouarged to call them today to tell them she was in the ER. Her pain is better but she is asking for more pain medication before she leaves. Instructed to take tylenol around the clock at home Differential Diagnosis Differential Diagnoses: The differential diagnosis associated with the presentation includes kidney stone, pyelonephritis, UTI, obstructive uropathy, ureteral spasms, cystitis Lab Data [facility] Lab Attestation statement: I reviewed the patient's lab results. mild leukocytosis 08/23/22 04:27 08/23/22 04:27 Labs: Lab Results 08/23/22 08/23/22 08/23/22 Range/Units 04: 04: 08:20 WBC 13.8 H (4.8-10.8) X10*3/uL RBC 4.64 (4.20-5.50) X10*6/uL Hgb 14.2 (12.0-16.0) g/dl Hct 41.7 (37.0-47.0) % MCV 89.9 (80.0-98.0) fL MCH 30.6 (27.0-33.0) pg MCHC 34.1 (31.0-35.0) g/dl RDW 12.2 (11.0-16.0) % Plt Count 410 H (160-400) X10*3/uL MPV 9.5 (9.4-12.3) fL Immature Gran % (Auto) 0.9 H (0.0-0.4) % Neut % (Auto) 70.6 (45-73) % Lymph % (Auto) 20.8 (20-40) % [place] % (Auto) 5.9 (2-11) % Eos % (Auto) 1.4 (0-4) % Baso % (Auto) 0.4 (0-2) % Lymph # (Auto) 2.9 (1.2-4.9) X10*3/uL [place] # (Auto) 0.8 (0.1-1.2) X10*3/uL Eos # (Auto) 0.2 (0.0-0.4) X10*3/uL Baso # (Auto) 0.1 (0.0-0.2) X10*3/uL Abs Immat Gran (auto) 0.12 H (0.00-0.03) X10*3/uL Absolute Neuts (auto) 9.8 H (2.0-8.3) x10*3/uL Absolute Nucleated RBC 0.000 (0.0-0.012) X10*3/uL Nucleated RBC % (auto) 0.0 (0.0-0.2) /100WBC Sodium 142 (135-145) mmol/L Potassium 4.2 (3.3-5.1) mmol/L Chloride 108 (96-108) mmol/L Carbon Dioxide 20 L (22-29) mmol/L Anion Gap 18 (12-20) BUN 19 H (9-16) mg/dL Creatinine 1.13 (0.5-1.4) mg/dL Estim Creat Clear Calc 79.6 Estimated GFR 53 Random Glucose 119 H (60-115) mg/dL Calcium 9.7 (8.4-10.2) mg/dL Total Bilirubin 0.5 (0.0-1.0) mg/dL AST 21 (5-31) U/L ALT 21 (0-31) U/L Alkaline Phosphatase 98 (39-117) U/L Total Protein 6.9 (6.5-8.0) g/dL Albumin 4.5 (3.5-5.0) g/dL Beta HCG, Quant < 2 mIU/mL Urine Color Yellow Urine Appearance Clear Urine pH 5.5 (5.0-9.0) Ur Specific [place] >= 1.030 H (1.005-1.025) Urine Protein Trace (Neg-Trace) mg/dL Urine Glucose (UA) Negative (Negative) mg/dL Urine Ketones Negative (Negative) mg/dL Urine Blood Small (1+) H (Negative) Urine Nitrite Negative (Negative) Ur Leukocyte Esterase Negative (Negative) Urine RBC 3-5 H (0-2) /HPF Urine WBC 0-5 (0-5) /HPF Ur Squamous Epith Cells 6-10 (0-2) /HPF Calcium Oxalate Crystal Present Urine Bacteria Trace (None Seen) Hyaline Casts 0-2 (0-2) /LPF Urine Test (NEGATIVE) 08/23/22 Range/Units 08:20 WBC (4.8-10.8) X10*3/uL RBC (4.20-5.50) X10*6/uL Hgb (12.0-16.0) g/dl Hct (37.0-47.0) % MCV (80.0-98.0) fL MCH (27.0-33.0) pg MCHC (31.0-35.0) g/dl RDW (11.0-16.0) % Plt Count (160-400) X10*3/uL MPV (9.4-12.3) fL Immature Gran % (Auto) (0.0-0.4) % Neut % (Auto) (45-73) % Lymph % (Auto) (20-40) % [place] % (Auto) (2-11) % Eos % (Auto) (0-4) % Baso % (Auto) (0-2) % Lymph # (Auto) (1.2-4.9) X10*3/uL [place] # (Auto) (0.1-1.2) X10*3/uL Eos # (Auto) (0.0-0.4) X10*3/uL Baso # (Auto) (0.0-0.2) X10*3/uL Abs Immat Gran (auto) (0.00-0.03) X10*3/uL Absolute Neuts (auto) (2.0-8.3) x10*3/uL Absolute Nucleated RBC (0.0-0.012) X10*3/uL Nucleated RBC % (auto) (0.0-0.2) /100WBC Sodium (135-145) mmol/L Potassium (3.3-5.1) mmol/L Chloride (96-108) mmol/L Carbon Dioxide (22-29) mmol/L Anion Gap (12-20) BUN (9-16) mg/dL Creatinine (0.5-1.4) mg/dL Estim Creat Clear Calc Estimated GFR Random Glucose (60-115) mg/dL Calcium (8.4-10.2) mg/dL Total Bilirubin (0.0-1.0) mg/dL AST (5-31) U/L ALT (0-31) U/L Alkaline Phosphatase (39-117) U/L Total Protein (6.5-8.0) g/dL Albumin (3.5-5.0) g/dL Beta HCG, Quant mIU/mL Urine Color Urine Appearance Urine pH (5.0-9.0) Ur Specific [place] (1.005-1.025) Urine Protein (Neg-Trace) mg/dL Urine Glucose (UA) (Negative) mg/dL Urine Ketones (Negative) mg/dL Urine Blood (Negative) Urine Nitrite (Negative) Ur Leukocyte Esterase (Negative) Urine RBC (0-2) /HPF Urine WBC (0-5) /HPF Ur Squamous Epith Cells (0-2) /HPF Calcium Oxalate Crystal Urine Bacteria (None Seen) Hyaline Casts (0-2) /LPF Urine Test NEGATIVE (NEGATIVE) Independent Interpretation I performed an independent interpretation of an: CT Scan Interpretation: intrarenal stones bilaterally, no gross hydro on the right, no ureteral stones apprecaited Radiology Impression Discussion of test interpretation with radiology: I have reviewed the radiologist's reading. Radiologist Impression: ?CT/CT abdomen pelvis wo IV con IMPRESSION: 1. Bilateral nonobstructive radiopaque renal calculi. There is mild prominence of right kidney pelvis ? ? ? and proximal ureter but no radiopaque calculi seen along the course of the ureter. 2. Mild constipation. Normal appendix. 3. Hepatic steatosis with focal fatty sparing right hepatic lobe External Record Review External record reviewed: Outpatient record, Prior outpatient labs and Prior outpatient radiology Prescription Management I considered prescription management with: Pain Medication and Antibiotic Chronic Conditions Patient?s care impacted by: Other (recurrent kidney stones) Critical Care Time Critical Care Time Critical Care Time: No Discharge Plan Discharge Clinical Impression: Hematuria Patient Disposition: Home, Self-Care Instructions: Hematuria (ED) Additional Instructions: Your CT scan did not show any kidney stones that would be causing your pain. Your urine test had a small amount of blood. Take the prescribed antibiotic as directed - complete the entire course Drink plenty of fluids Follow up with your Urologist. If you develop new or worsening symptoms call 911 or come back to the ER for further evaluation. Prescriptions: New levofloxacin 500 mg tablet 500 mg PO DAILY Qty: 7 0RF No Action levofloxacin 750 mg tablet 750 mg PO DAILY 7 Days Qty: 7 0RF cefuroxime axetil 250 mg tablet 250 mg PO BID 7 Days Qty: 14 0RF phenazopyridine [Pyridium] 200 mg tablet 200 mg PO TID 2 Days Qty: 6 0RF tramadol 50 mg tablet 50 mg PO Q6H PRN (Reason: pain) Qty: 20 0RF Interventions: ED Discharge Assessment Last Done: 08/23/22 11:48 Discharge Date/Time: 08/23/22 11:48
[2022-08-23] MEDS: 0.9 % Sodium Chloride 1,000 ML 999 ML IVCONT (08:27)
[2022-08-23] MEDS: ondansetron HCL 4 MG/2 ML VIAL IVPUSH (08:27)
[2022-08-23] MEDS: HYDROmorphone HCl 1 MG/ML SYRINGE IVPUSH (08:27)
[2022-08-23 08:47] LABS: HCG Quantitative < 2 mIU/mL
[2022-08-23 08:48] LABS: Appearance Urine Clear; Color Urine Yellow; Glucose Urine UA Negative (Negative); Leukocyte Esterase Urine Negative (Negative); Nitrite Urine Negative (Negative); PH 5.5 (5.0-9.0); Specific Gravity - Urine >= 1.030 (1.005-1.025); UMIC TRIGGER UACC YES; Urine Blood Small (1+) (Negative); Urine Ketones Negative (Negative); Urine Protein Trace mg/dL (Neg-Trace)
[2022-08-23 08:49] LABS: Urine Pregnancy NEGATIVE (NEGATIVE)
[2022-08-23 08:50] LABS: UPreg QC Valid YES
[2022-08-23 09:04] LABS: Bacteria Urine Trace (None Seen); Calcium Oxalate Crystals Urine Present; Hyaline Casts Urine 0-2 /LPF (0-2); WBC Urine 0-5 /HPF (0-5)
[2022-08-23] MEDS: Acetaminophen 325 MG TABLET 975 MG PO (10:16)
[2022-08-23 11:01] VITALS: BP 121/73; PULSE 87; RESP 13; TEMP 36.6; O2SAT 97
== END 2022-08-23 11:48 | disposition home or self-care (01) ==
PROVIDERS: Physician Assistant; Emergency Provider Internal Medicine
DX: R31.9 Hematuria, unspecified (principal); R30.0 Dysuria; R10.9 Unspecified abdominal pain; Z79.899 Other long term (current) drug therapy
CPT/HCPCS: 36415; 74176; 80053; 81001; 81025; 84702; 85025; 96361; 96374; 96375; 99284; 99285; J1170; J2405

== ENCOUNTER 2023-04-11 18:43 | Emergency (ER) | payer MEDICAID, SELFPAY ==
--- NOTE | ~2023-04-11 | CT_ITS ---
EXAMINATION: CT ABDOMEN AND PELVIS WITHOUT CONTRAST CLINICAL INFORMATION: Right flank pain. COMPARISON: CT abdomen and pelvis dated 08/23/2022. TECHNIQUE: Multidetector volumetric imaging was performed from the superior aspect of the liver through the pubic symphysis. Sagittal and coronal reformatted images were obtained on the technologist's workstation. Imaging is limited by motion artifact. This CT examination was performed using dose optimization techniques as appropriate, variously including the following: *Automated exposure control *Adjustment of mA and/or kV according to patient size (this includes techniques or standardized protocols for targeted exams where dose is matched to indication/reason for exam; i.e. extremities or head) *Use of iterative reconstruction technique DLP: 777 mGy-cm FINDINGS: LUNG BASES: There is mild bibasilar dependent hypoaeration. LIVER, GALLBLADDER, AND BILIARY TREE: The liver is normal in size, shape, and attenuation. No focal hepatic lesion or biliary ductal dilatation is present. The gallbladder is surgically absent. PANCREAS: Unremarkable. SPLEEN: Unremarkable. ADRENAL GLANDS: Unremarkable. KIDNEYS AND URETERS: The kidneys are normal in size, shape, and attenuation. No perinephric stranding. At the upper pole of the right kidney, a 6 mm nonobstructing calculus is seen. At the upper pole of the left kidney (4:227 and 230), 3 mm and 4 mm nonobstructing calculi are seen. At the interpolar left kidney (4:273), a 3 mm nonobstructing calculus is seen. At the lower pole of the left kidney (4:338), a 7 mm nonobstructing calculus is seen. There are a few further scattered 1 mm nonobstructing bilateral renal calculi. No ureteric calculus or hydronephroureter is seen bilaterally. BLADDER: Unremarkable. GASTROINTESTINAL TRACT: The small and large bowel are unremarkable. The appendix is unremarkable. ABDOMINAL WALL: There is a small fat-containing umbilical hernia. LYMPH NODES: Normal. VASCULAR: Unremarkable. PELVIC VISCERA: The uterus and adnexa are unremarkable. OSSEOUS STRUCTURES: At L4-L5 and L5-S1, there is moderately severe degenerative disc disease, with vacuum phenomenon. No acute or aggressive osseous finding is noted. CT/CT abdomen pelvis wo IV con IMPRESSION: 1. Multiple nonobstructing bilateral renal calculi are seen. No ureteric calculus is seen, and there is no obstructive uropathy. 2. No bowel obstruction, free intraperitoneal air or abscess is seen. There is no appendicitis or diverticulitis. 3. There is a small fat-containing umbilical hernia. 4. There is moderately severe degenerative disc disease at L4-L5 and L5-S1. 5. Imaging is somewhat limited by motion artifact. Fleischner guidelines were followed.
[2023-04-11 19:16] VITALS: BP 141/105; PULSE 82; RESP 16; TEMP 36.5; O2SAT 99; BMI 35.2
--- NOTE | 2023-04-11 19:16 | ED_ITS ---
HPI - General Adult General Chief complaint: General Medical Stated complaint: kidney stone, R side pain, blood in urine Time Seen by Provider: 04/11/23 21:14 Source: patient Mode of arrival: ambulatory Limitations: no limitations History of Present Illness HPI narrative: Patient with history of chronic flank pain with non obstructive kidney stones in the past multiple visit states that she has a 5 mm stone in right ureter and she was seen at [facility] week. Patient denied any gross hematuria been nauseated vomited few times pain is increased in the last 3 days no fever no chills patient taking oxycodone for chronic pain Related Data Previous Rx's Medication Instructions Recorded levofloxacin 750 mg tablet 750 mg PO DAILY 7 days #7 tabs 10/15/21 cefuroxime axetil 250 mg tablet 250 mg PO BID 7 days #14 tabs 06/19/22 phenazopyridine 200 mg tablet 200 mg PO TID 2 days #6 tabs 06/19/22 (Pyridium) tramadol 50 mg tablet 50 mg PO Q6H PRN pain #20 tabs 06/19/22 levofloxacin 500 mg tablet 500 mg PO DAILY #7 tabs 08/23/22 Allergies Allergy/AdvReac Type Severity Reaction Status Date / Time ibuprofen [From Motrin] Allergy Rash Verified 08/23/22 04:13 ketorolac [From Toradol] Allergy Rash Verified 08/23/22 04:13 gabapentin [From Neurontin] AdvReac Headache Verified 08/23/22 04:13 Review of Systems 2 Review of Systems: Yes all other systems are reviewed and are negative [facility] Past Medical History Medical History Kidney stones Ovarian cyst FH: cholecystectomy Social History Alcohol intake: current Alcohol intake frequency: holidays/special occasions only Patient Tobacco Use Status: Never used Tobacco Smoked in Last 30 Days: No Use of substances other than those prescribed or required for medical reasons: No Advance Directives: No Advance Directives Information Provided: No Patient : No Physical Exam ED Vital Signs: Vital Signs - 24 hr 04/11/23 19:16 04/11/23 22:49 Temperature 97.7 F Pulse Rate 82 89 Respiratory Rate 16 18 Blood Pressure 141/105 H 126/81 Pulse Oximetry 99 96 Oxygen Delivery Method Room Air Room Air BMI result Body Mass Index 35.2 Appearance: Alert. Oriented X3. No acute distress. Eyes: PERRLA, No Nystagmus ENT: Pharynx normal. Oral Mucosa moist Neck: Normal inspection. Neck supple. CVS: Normal heart rate and rhythm. Pulses normal. no wheezing/rales/rhonchi Abdomen: Soft and nontender. Bowel sounds are present, no mass palpable, mild right CVA tenderness no spinal tenderness Skin: Skin warm and dry. Normal skin color. Normal skin turgor. Extremities: No lower extremity edema. No calf tenderness Neuro: Oriented X 3. Course Course Course Narrative: This is a rapid medical exam: Additional HPI, ROS, PE not included below will be deferred to primary provider. Patient is a 42-year-old female presenting to the emergency department with known R sided ureteral stone, diagnosed around one month ago at [facility] in [place]. States has had multiple lithotripsies previously in [place]. States right flank pain increased several days ago. Reports nausea and vomiting as well as hematuria. Fever to 101. Plan: UA, labs, CT Medications Administered Discontinued Medications Generic Name Dose Route Start Last Admin Trade Name Freq PRN Reason Stop Dose Admin Cyclobenzaprine HCl 10 mg 04/11/23 21:31 04/11/23 21:44 Cyclobenzaprine Hcl 10 Mg Tablet PO 04/11/23 21:32 10 mg ONCE ONE Administration Morphine Sulfate 15 mg 04/11/23 21:31 04/11/23 21:44 Morphine Sulfate Immed Release 15 Mg Tablet PO 04/11/23 21:32 15 mg ONCE ONE Administration Ondansetron HCl 4 mg 04/11/23 21:31 04/11/23 21:44 Ondansetron Odt 4 Mg Tab.Rapdis TRANSLINGU 04/11/23 21:32 4 mg ONCE ONE Administration Medical Decision Making Medical Decision Making [facility] Narrative: Patient with chronic right flank pain CT scan negative for any obstructive kidney stone , patient does have pain medication at home will discharge patient home advised to continue her pain medications Differential Diagnosis Differential Diagnoses: The differential diagnosis associated with the presentation includes Kidney stone/chronic pain/UTI Lab Data [facility] Lab Attestation statement: I reviewed the patient's lab results. 04/11/23 19:37 04/11/23 19:37 Labs: Lab Results 04/11/23 04/11/23 Range/Units 19:37 22:01 WBC 10.3 (4.8-10.8) X10*3/uL RBC 4.86 (4.20-5.50) X10*6/uL Hgb 15.0 (12.0-16.0) g/dl Hct 43.7 (37.0-47.0) % MCV 89.9 (80.0-98.0) fL MCH 30.9 (27.0-33.0) pg MCHC 34.3 (31.0-35.0) g/dl RDW 13.3 (11.0-16.0) % Plt Count 341 (160-400) X10*3/uL MPV 10.0 (9.4-12.3) fL Immature Gran % (Auto) 0.7 H (0.0-0.4) % Neut % (Auto) 70.8 (45-73) % Lymph % (Auto) 22.0 (20-40) % [place] % (Auto) 5.2 (2-11) % Eos % (Auto) 0.6 (0-4) % Baso % (Auto) 0.7 (0-2) % Lymph # (Auto) 2.3 (1.2-4.9) X10*3/uL [place] # (Auto) 0.5 (0.1-1.2) X10*3/uL Eos # (Auto) 0.1 (0.0-0.4) X10*3/uL Baso # (Auto) 0.1 (0.0-0.2) X10*3/uL Abs Immat Gran (auto) 0.07 H (0.00-0.03) X10*3/uL Absolute Neuts (auto) 7.3 (2.0-8.3) x10*3/uL Absolute Nucleated RBC 0.000 (0.0-0.012) X10*3/uL Nucleated RBC % (auto) 0.0 (0.0-0.2) /100WBC Sodium 140 (135-145) mmol/L Potassium 4.3 (3.3-5.1) mmol/L Chloride 108 (96-108) mmol/L Carbon Dioxide 21 L (22-29) mmol/L Anion Gap 15 (12-20) BUN 14 (9-16) mg/dL Creatinine 0.97 (0.5-1.4) mg/dL Estim Creat Clear Calc 92.7 Estimated GFR > 60 Random Glucose 95 (60-115) mg/dL Calcium 9.8 (8.4-10.2) mg/dL Total Bilirubin 0.4 (0.0-1.0) mg/dL AST 22 (5-31) U/L ALT 23 (0-31) U/L Alkaline Phosphatase 94 (39-117) U/L Total Protein 7.5 (6.5-8.0) g/dL Albumin 4.6 (3.5-5.0) g/dL Beta HCG, Quant < 2 mIU/mL Urine Color Yellow Urine Appearance Cloudy Urine pH 5.5 (5.0-9.0) Ur Specific [place] 1.020 (1.005-1.025) Urine Protein Trace (Neg-Trace) mg/dL Urine Glucose (UA) Negative (Negative) mg/dL Urine Ketones Negative (Negative) mg/dL Urine Blood Small (1+) H (Negative) Urine Nitrite Negative (Negative) Ur Leukocyte Esterase Small (1+) H (Negative) Urine RBC 3-5 H (0-2) /HPF Urine WBC 11-20 H (0-5) /HPF Ur Squamous Epith Cells 11-20 (0-2) /HPF Urine Bacteria 3+ (None Seen) Hyaline Casts 3-5 (0-2) /LPF Independent Interpretation I performed an independent interpretation of an: CT Scan Radiology Impression Discussion of test interpretation with radiology: I have reviewed the radiologist's reading. Radiologist Impression: CT/CT abdomen pelvis wo IV con IMPRESSION: 1. Multiple nonobstructing bilateral renal calculi are seen. No ureteric calculus is seen, and there is no obstructive uropathy. 2. No bowel obstruction, free intraperitoneal air or abscess is seen. There is no appendicitis or diverticulitis. 3. There is a small fat-containing umbilical hernia. 4. There is moderately severe degenerative disc disease at L4-L5 and L5-S1. 5. Imaging is somewhat limited by motion artifact. Fleischner guidelines were followed. Discharge Plan Discharge Clinical Impression: Renal colic on right side Patient Disposition: Home, Self-Care Instructions: Renal Colic (ED) Additional Instructions: Your CT scan did not show any obstructive kidney stone Continue to take your pain medications Follow-up with urologist Prescriptions: No Action levofloxacin 750 mg tablet 750 mg PO DAILY 7 Days Qty: 7 0RF cefuroxime axetil 250 mg tablet 250 mg PO BID 7 Days Qty: 14 0RF phenazopyridine [Pyridium] 200 mg tablet 200 mg PO TID 2 Days Qty: 6 0RF tramadol 50 mg tablet 50 mg PO Q6H PRN (Reason: pain) Qty: 20 0RF levofloxacin 500 mg tablet 500 mg PO DAILY Qty: 7 0RF Referrals: Kofi Figueredo MD [Physician] - 2 weeks Interventions: ED Discharge Assessment Last Done: 04/11/23 22:51 Discharge Date/Time: 04/11/23 22:53
[2023-04-11 19:41] LABS: MANUAL DIFF FLAG NO
[2023-04-11 19:42] LABS: Basophils Absolute Auto 0.1 X10*3/uL (0.0-0.2); Basophils Percent Auto 0.7 % (0-2); Eosinophils Absolute Auto 0.1 X10*3/uL (0.0-0.4); Eosinophils Percent Auto 0.6 % (0-4); Hematocrit 43.7 % (37.0-47.0); Imm Gran Abs Auto 0.07 X10*3/uL (0.00-0.03); Imm Gran Pct Auto 0.7 % (0.0-0.4); Lymphocytes Absolute Auto 2.3 X10*3/uL (1.2-4.9); Mean Corpuscular HGB Conc 34.3 g/dl (31.0-35.0); Mean Corpuscular Hemoglobin 30.9 pg (27.0-33.0); Mean Corpuscular Volume 89.9 fL (80.0-98.0); Monocytes Absolute Auto 0.5 X10*3/uL (0.1-1.2); Monocytes Percent Auto 5.2 % (2-11); Neutrophils Absolute Auto 7.3 x10*3/uL (2.0-8.3); Neutrophils Percent Auto 70.8 % (45-73); Platelet Count 341 X10*3/uL (160-400); Red Blood Count 4.86 X10*6/uL (4.20-5.50); Red Cell Distribution Width 13.3 % (11.0-16.0); White Blood Count 10.3 X10*3/uL (4.8-10.8)
[2023-04-11 20:06] LABS: Alanine Aminotransferase 23 U/L (0-31); Albumin Level 4.6 g/dL (3.5-5.0); Alkaline Phosphatase 94 U/L (39-117); Anion Gap 15 (12-20); Aspartate Amino Transferase 22 U/L (5-31); Bilirubin Total 0.4 mg/dL (0.0-1.0); Blood Urea Nitrogen 14 mg/dL (9-16); Calcium 9.8 mg/dL (8.4-10.2); Carbon Dioxide 21 mmol/L (22-29); Chloride 108 mmol/L (96-108); Creatinine Clr Calc Pharmacy 92.7; Estimated Glomerular Filt Rate > 60; Glucose Random 95 mg/dL (60-115); HCG Quantitative < 2 mIU/mL; Potassium 4.3 mmol/L (3.3-5.1); Sodium 140 mmol/L (135-145); Total Protein 7.5 g/dL (6.5-8.0)
[2023-04-11] MEDS: Cyclobenzaprine HCl 10 MG TABLET PO (21:44)
[2023-04-11] MEDS: Morphine Sulfate Immed Release 15 MG TABLET PO (21:44)
[2023-04-11] MEDS: Ondansetron ODT 4 MG TAB.RAPDIS TRANSLINGU (21:44)
[2023-04-11 22:09] LABS: Appearance Urine Cloudy; Color Urine Yellow; Glucose Urine UA Negative (Negative); Leukocyte Esterase Urine Small (1+) (Negative); Nitrite Urine Negative (Negative); PH 5.5 (5.0-9.0); UMIC TRIGGER UACC YES; Urine Blood Small (1+) (Negative); Urine Ketones Negative (Negative); Urine Protein Trace mg/dL (Neg-Trace)
[2023-04-11 22:21] LABS: Bacteria Urine 3+ (None Seen); UACC Culture Trigger YES
[2023-04-11 22:49] VITALS: BP 126/81; PULSE 89; RESP 18; O2SAT 96
== END 2023-04-11 22:53 | disposition home or self-care (01) ==
PROVIDERS: Registered Nurse Emergency; Emergency Provider Internal Medicine
DX: N23 Unspecified renal colic (principal); R31.9 Hematuria, unspecified; Z79.899 Other long term (current) drug therapy
CPT/HCPCS: 36415; 74176; 80053; 81001; 84702; 85025; 87086; 99284